=== PATIENT | male | born 1980 | race Caucasian/White ===

== ENCOUNTER 2023-12-10 13:00 | Emergency (ER) | payer OTHER, SELFPAY ==
--- NOTE | ~2023-12-10 | XR_ITS ---
EXAMINATION: XR chest 2V DATE: 12/10/2023 14:51 INDICATION: Burning chest pain. Chemical exposure. TECHNIQUE: Frontal and lateral views of the chest were obtained. COMPARISON: None. FINDINGS: There is no pneumonia, pleural effusion, or pneumothorax. The heart size is normal. IMPRESSION: 1. No acute cardiopulmonary disease. Reviewed, dictated and finalized at location A.
[2023-12-10 13:04] VITALS: BP 139/84; PULSE 70; RESP 16; TEMP 36.6; O2SAT 100
--- NOTE | 2023-12-10 14:32 | ED.GENADULT ---
HPI - General Adult General Chief complaint: Environmental Exposure Stated complaint: CHEMICAL INHALATION Time Seen by Provider: 12/10/23 13:23 History of Present Illness HPI narrative: 43-year-old male history of anxiety depression presents to the emergency room for evaluation of suspected environmental exposure to multiple chemicals. 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 States he has been using meth 1 chloride, either, Esmre proxy, and removing it with a pencil. CT has been working in his bathroom for 1 week, has been experiencing occasional shortness of breath, burning in his throat, nighttime diaphoresis, now 1 point states that he was hallucinating. States he has not been exposed any of these chemicals for over 24 hours, and his symptoms are resolving. Related Data Allergies Allergy/AdvReac Type Severity Reaction Status Date / Time No Known Allergies Allergy Verified 12/10/23 13:03 Review of Systems Review of Systems: CONSTITUTIONAL: Reports sweats and chills EYES: Denies visual changes, redness, or discharge. ENT: Denies rhinorrhea, congestion, sore throat, or otalgia. CARDIOVASCULAR: Denies chest pain, palpitations, or edema. RESPIRATORY: Reports cough or dyspnea. GASTROINTESTINAL: Reports nausea GENITOURINARY: Denies dysuria or hematuria. SKIN: Denies rash or itching. MUSCULOSKELETAL: Denies back pain, joint pain, or myalgia. NEUROLOGIC: Reports headache and dizziness PSYCHIATRIC: Denies anxiety or depression. [facility] Family History Family History Father Hypertension Social History Social History Smoking status: Never smoker Alcohol intake: current Exam Narrative: GENERAL: Well-appearing, well-nourished, no physical limitations, and in no acute distress. HEAD: Normocephalic, atraumatic. EYES: Conjunctivae normal, PERRLA and EOMI. ENT: External nose normal, Nares clear, no rhinorrhea or epistaxis. Mucous membranes moist. Oropharynx without tonsillar hypertrophy exudate or other lesions. External ears normal, bilateral TMs normal bilaterally NECK: Supple. CHEST: Clear to auscultation. No respiratory distress. No wheezes rales or rhonchi. No tenderness. HEART: Regular rate and rhythm. No murmur heard. Normal peripheral pulses. ABDOMEN: Soft, nontender, nondistended, normal active bowel sounds. EXTREMITIES: Normal range of motion. No edema. No clubbing or cyanosis SKIN: Warm, dry, no rash. No noted wounds NEURO: No focal deficits. Alert and oriented x3. MAEW. CN's II-XI intact bilaterally, normal gait PSYCH: Cooperative. Normal mood and affect. Course Course Emergency Course: Was in control notified. Recommended no workup due to resolution of symptoms, assist symptoms are not consistent with the exposure to the chemicals he recalled working with. Vital Signs Vital signs: Vital Signs Temperature 36.6 C 12/10/23 13:04 Pulse Rate 70 12/10/23 13:04 Respiratory Rate 16 12/10/23 13:04 Blood Pressure 139/84 12/10/23 13:04 Pulse Oximetry 100 12/10/23 13:04 Temperature 36.6 C 12/10/23 13:04 Pulse Rate 70 12/10/23 13:04 Respiratory Rate 16 12/10/23 13:04 Blood Pressure 139/84 12/10/23 13:04 Pulse Oximetry 100 12/10/23 13:04 Medical Decision Making Vital Signs Vital Signs: Vital Signs Temperature 36.6 C 12/10/23 13:04 Pulse Rate 70 12/10/23 13:04 Respiratory Rate 16 12/10/23 13:04 Blood Pressure 139/84 12/10/23 13:04 Pulse Oximetry 100 12/10/23 13:04 Temperature 36.6 C 12/10/23 13:04 Pulse Rate 70 12/10/23 13:04 Respiratory Rate 16 12/10/23 13:04 Blood Pressure 139/84 12/10/23 13:04 Pulse Oximetry 100 12/10/23 13:04 Lab Data 12/10/23 15:43 12/10/23 14:18 Labs: Lab Results
[2023-12-10 14:34] LABS: Alveolar/Arterial O2 Gradient 21.2 mmHg; Base Excess ABG -1.7 mEq/l (+/-2.0); Fractional Inspired Oxygen 21 %; HCO3 ABG 22.2 mEq/l (22.0-26.0); Oxygen Content ABG 17.9 %vol (16.0-22.0); Oxygen Saturation ABG 96.8 % (95.0-100.0); Oxyhemoglobin 95.1 % THb (90.0-100.0); PCO2 ABG 34.9 mmHg (35.0-45.0); PO2 ABG 86.7 mmHg (80.0-100.0); PO2 FiO2 Ratio Arterial Blood 4.13 %; Total Hemoglobin 13.3 g/dL (12.0-18.0); pH ABG 7.421 (7.350-7.450)
[2023-12-10 14:35] LABS: Modified Allen's Test Pass; Site Drawn LEFT RADIAL
[2023-12-10 14:37] LABS: Alanine Aminotransferase 18 U/L (6-50); Albumin Level 4.6 g/dL (3.5-5.1); Alkaline Phosphatase 59 U/L (38-126); Anion Gap 9 mmol/L (4-12); Aspartate Amino Transferase 40 U/L (17-59); Bilirubin,Total 0.5 mg/dL (0.2-1.3); Blood Urea Nitrogen 17 mg/dL (9-20); Calcium 8.8 mg/dL (8.4-10.2); Carbon Dioxide 23 mmol/L (22-30); Chloride 108 mmol/L (98-107); Estimated CRCL calculation 138 ml/min; Estimated Glomerular Filt Rate > 60; Glucose 119 mg/dL (65-110); Potassium 3.7 mmol/L (3.4-5.0); Sodium 140 mmol/L (137-145)
[2023-12-10 15:06] LABS: Appearance Urine Clear (Clear); Bilirubin Urine Negative (Negative); Blood Urine Negative (Negative); Color Urine Yellow (Yellow); Glucose Urine UA Negative (Negative); Ketones Urine Negative (Negative); Leukocyte Esterase Ur Negative LEU/UL (Negative); Nitrate Urine Negative (Negative); Protein Urine Negative (Negative); Urobilinogen Urine 0.2 mg/dL (<2.0)
[2023-12-10 15:09] LABS: Add Urine Microscopic? NO; Specific Grav Ur 1.032 (1.001-1.035)
[2023-12-10 15:20] LABS: Amphetamine Screen Urine Negative (Negative); Barbiturate Screen Urine Negative (Negative); Benzodiazepines Screen Urine Negative (Negative); Cannabinoid Screen Urine Negative (Negative); Cocaine Screen Urine Negative (Negative); Methadone Screen Urine Negative (Negative); Opiate Screen Urine Negative (Negative); Phencyclidine Screen Urine Negative (Negative)
[2023-12-10 15:50] LABS: Basophils Percent Auto 0.6 % (0.2-1.2); Eosinophils Absolute Auto 0.1 K/mm3 (0-0.3); Eosinophils Percent Auto 2.3 % (0-4.4); Hematocrit 36.7 % (42.0-52.0); Hemoglobin 12.4 g/dL (14.0-18.0); Immature Granulocyte Absolute 0.01 K/mm3 (0.00-0.031); Immature Granulocyte Percent A 0.3 % (0-0.5); Lymphocytes Absolute Auto 1.45 K/mm3 (0.9-3.2); Mean Corpuscular HGB Conc 33.8 g/dl (32-36); Mean Corpuscular Hemoglobin 29.8 pg (26-34); Mean Corpuscular Volume 88.2 fl (80-100); Mean Platelet Volume 9.9 fl (7.4-10.4); Monocytes Absolute Auto 0.5 K/mm3 (0.1-0.6); Monocytes Percent Auto 12.7 % (2.6-8.5); Neutrophils Absolute Auto 1.5 K/mm3 (1.3-6.7); Neutrophils Percent Auto 43.1 % (45.5-73.1); Platelet Count Result 230 k/mm3 (150-375); Red Blood Count 4.16 M/mm3 (4.6-6.20); Red Cell Distribution Width 13.5 % (11.5-14.5); White Blood Count 3.5 K/mm3 (4.5-10.0)
--- NOTE | 2023-12-10 15:56 | PC.NURSE ---
[id number] [address]ison control contacted, Liz stated the pts symptoms did not match the chemicals he was exposed to. [id number] Poison control called back for update, stated they were closing the case.
[2023-12-10 16:12] VITALS: BP 140/80; PULSE 65; RESP 18; O2SAT 100
== END 2023-12-10 16:12 | disposition home or self-care (01) ==
PROVIDERS: Emergency Provider Nurse Practitioner Family
DX: J02.9 Acute pharyngitis, unspecified (principal); Z77.098 Contact with and (suspected) exposure to other hazardous, chiefly nonmedicinal, chemicals
CPT/HCPCS: 36415; 36600; 71046; 80053; 80307; 81003; 82805; 85025; 99283